=== PATIENT | male | born 2000 | race Caucasian/White ===

== ENCOUNTER 2023-10-10 14:59 | Outpatient (CLI) | payer OTHER | END 2023-10-10 23:59 | disposition home or self-care (01) | LOC: CARD DIAG 14:59 | PROVIDERS: ATTEND Chiropractor | DX: I08.8 Other rheumatic multiple valve diseases (principal); R94.31 Abnormal electrocardiogram [ECG] [EKG]; I25.9 Chronic ischemic heart disease, unspecified | CPT/HCPCS: 93005; 93306 ==

== ENCOUNTER 2024-04-17 08:00 | Outpatient (CLI) | payer OTHER | END 2024-04-17 23:00 | disposition home or self-care (01) | LOC: CARD DIAG 08:00 | PROVIDERS: ATTEND Chiropractor | DX: I08.8 Other rheumatic multiple valve diseases (principal); R00.2 Palpitations | CPT/HCPCS: 93306 ==

== ENCOUNTER 2024-04-17 11:41 | Outpatient (CLI) | payer OTHER | END 2024-04-17 23:59 | disposition home or self-care (01) | LOC: CARD DIAG 11:41 | PROVIDERS: ATTEND Chiropractor | DX: I08.8 Other rheumatic multiple valve diseases (principal); R00.2 Palpitations | CPT/HCPCS: 93005 ==